=== PATIENT | female | born 1965 | race Caucasian/White ===

== ENCOUNTER → 2016-06-19 | Outpatient (CLI) | payer OTHER ==
--- NOTE | 2016-06-19 17:28 | MA ---
Screening Digital Mammogram With iCAD Analysis Clinical Indications: Routine screening. Technique: Standard cephalocaudal and mediolateral oblique projections were obtained. This examinatio n was processed by the iCAD computer aided detection system. Comparison: June 2015, May 2015, May 2014, May 2013, May 2012, May 2011, [place] page2010, May 2009. Breast density: Type B; Scattered fibroglandular densities. Findings: CAD was reviewed. There is possible developing asymmetry in the outer posterior left breast on the craniocaudal view. No suspicious microcalcifications are seen. Heterogeneous glandular patter n of the right breast is stable. Impression: Possible developing left breast asymmetry requires further evaluation, BI-RADS 0. Recommendation: Spot compression assessment of the left breast with ultrasound suggested if the abnor mality persists on diagnostic evaluation. [facility] will send a result letter to the patient.
== END ==
LOC: BMCIMAGING 10:51
DX: Z12.31 Encounter for screening mammogram for malignant neoplasm of breast (principal)
CPT/HCPCS: G0202

== ENCOUNTER → 2016-06-29 | Outpatient (CLI) | payer OTHER ==
--- NOTE | 2016-06-29 14:14 | MA ---
Diagnostic Digital Mammogram Left Breast With iCAD Analysis Reason for examination: Evaluate possible developing asymmetry in the outer posterior left breast not ed on the screening study June 19, 2016. Technique: Oblique and craniocaudal spot compression views were obtained. Also, a true lateral was pe rformed. The examination was processed by the iCAD computer-aided detection system. Comparison to older studies dating back to May 2009. Findings: The asymmetry in the upper-outer posterior left breast is less conspicuous on diagnostic as sessment, but does persist. This may represent mildly prominent normal glandular elements. The patien t has been taking hormonal supplementation. Impression: Persistent left breast asymmetry requires further evaluation. BI-RADS 0. Recommendation: Targeted left breast ultrasound which will be subsequently performed today. A verbal report was given to the patient. [facility] with send a result letter.
--- NOTE | 2016-06-29 15:36 | US ---
Left Breast Ultrasound History: Evaluate persistent asymmetry in the upper outer left breast on diagnostic mammography from earlier today. Technique: Longitudinal and transverse images were obtained utilizing a 15 MHz transducer. Findings: No palpable abnormality is identified. Sonographic interrogation of the upper outer left br east demonstrates scattered fibroglandular elements. No solid or cystic mass is seen. Impression: Benign findings when considering mammographic and sonographic assessment, BI-RADS 2. Recommendation: Resume routine mammographic screening in one year as long as physical examination is negative.. Findings and follow-up recommendations were reviewed with the patient in detail. [facility] will send a result letter to the patient.
== END ==
LOC: BMCIMAGING 13:23
PROVIDERS: ATTEND Midwife
DX: R92.8 Other abnormal and inconclusive findings on diagnostic imaging of breast (principal)
CPT/HCPCS: G0206

== ENCOUNTER → 2017-05-27 | Outpatient (CLI) | payer OTHER | LOC: BMCIMAGING 15:03 | PROVIDERS: ATTEND Internal Medicine Endocrinology, Diabetes & Metabolism | DX: E04.1 Nontoxic single thyroid nodule (principal); E06.3 Autoimmune thyroiditis | CPT/HCPCS: 76536-PO ==

== ENCOUNTER → 2017-06-21 | Outpatient (CLI) | payer OTHER | LOC: BMCIMAGING 08:30 | PROVIDERS: ATTEND Obstetrics & Gynecology | DX: Z12.31 Encounter for screening mammogram for malignant neoplasm of breast (principal) ==

== ENCOUNTER → 2018-06-22 | Outpatient (CLI) | payer OTHER | LOC: BMCIMAGING 08:40 | PROVIDERS: ATTEND Obstetrics & Gynecology | DX: Z12.31 Encounter for screening mammogram for malignant neoplasm of breast (principal) ==